=== PATIENT | male | born 1945 | race Caucasian/White ===

== ENCOUNTER 2017-12-06 09:57 | Emergency (ER) | payer OTHER ==
[~2017-12-06] VITALS: Ht 175.2 cm; Wt 118.8 kg
--- NOTE | ~2017-12-06 | EKG ---
[place], [place] ELECTROCARDIOGRAM REPORT NAME: JORGE ROACH UNIT #: [id number] ROOM: DOCTOR: EPIPHANY DRAFT REPORT BIRTHDATE: [birth year] [facility] Test Date: 2017-12-06 Test Time: 10:12:02 Pat Name: JORGE ROACH Department: Room: Gender: Patcher: Beba Mora : 1945 Requested By: MIKE MENDOZA Order Number: [id number] Reading MD: Shagufta Mohan MD Measurements Intervals [place] Rate: 67 P: 32 PA: 162 QRS: -25 QRSD: 97 T: -2 QT: 401 QTc: 424 Interpretive Statements Sinus rhythm Ventricular premature complex Borderline left axis deviation Low voltage, precordial leads Electronically Signed On 12-09-2017 12:32:25 PDT by Shagufta Mohan MD CM:EKGRPT:ELECTROCARDIOGRAM REPORT [id number] MIKE MENDOZA MD EPIPHANY DRAFT REPORT MIKE MENDOZA MD
[~2017-12-06 09:57] MED LIST: HYDROCODONE BIT1 T11 PO
[2017-12-06] MEDS ORDERED: MOBIC15 MG PO (10:12)
[2017-12-06] MEDS ORDERED: EFFEXOR-XR150 MG PO (10:12)
[2017-12-06] MEDS ORDERED: VITAMIN D32000 UNIT PO (10:13)
[2017-12-06] MEDS ORDERED: ASPIR LOW81 MG PO (10:13)
[2017-12-06] MEDS ORDERED: DONEPEZIL HCL10 MG PO (10:13)
[2017-12-06 10:16] LABS: BASO % 0.6 % (0.0-1.0); EOS # 0.2 10*3/uL (0.0-0.4); EOS % 3.3 % (1.0-4.0); HEMATOCRIT 43.4 % (42.0-52.0); HEMOGLOBIN 14.6 g/dl (14.0-18.0); LYMPH # 1.7 10*3/uL (1.3-4.4); LYMPH % 24.6 % (27.0-41.0); MEAN CELL VOLUME 90.6 fl (80.0-94.0); MEAN CORPUSCULAR HGB 30.5 pg (27.0-31.0); MEAN CORPUSCULAR HGB CONC 33.6 g/dl (33.0-37.0); MEAN PLATELET VOLUME 9.5 fl (9.6-12.3); MONO # 0.5 10*3/uL (0.1-1.0); MONO % 7.8 % (3.0-9.0); NEUT # 4.3 10*3/uL (2.3-7.9); NEUT % 63.4 % (47.0-73.0); PLATELET COUNT AUTOMATED 216 10*3/uL (130-400); RED BLOOD COUNT 4.79 10*6/uL (4.50-5.90); RED CELL DISTRI WIDTH 13.6 % (0-14.5); WHITE BLOOD COUNT 6.8 10*3/uL (4.8-10.8)
[2017-12-06 10:36] LABS: ALBUMIN 3.4 gm/dl (3.1-4.5); ALKALINE PHOSPHATASE 55 U/L (45-117); BUN 13 mg/dl (7-24); CHLORIDE 106 mmol/L (98-107); CREATININE 0.78 mg/dL (0.70-1.30); POTASSIUM 4.5 mmol/L (3.5-5.1); SGOT/AST 26 IU/L (3-35); SGPT/ALT 40 U/L (12-78); SODIUM 139 mmol/L (136-145); TOTAL PROTEIN 6.9 gm/dL (6.4-8.2)
[2017-12-06 10:37] LABS: TROPONIN I < 0.015 ng/ml (<0.045)
[2017-12-06 10:39] LABS: ACT PARTIAL THROMBO TIME 25.6 SECONDS (20.8-31.5)
== END 2017-12-06 11:29 | disposition home or self-care (01) ==
LOC: ED 09:57
PROVIDERS: Emergency Medicine
DX: R42 Dizziness and giddiness (principal); R53.83 Other fatigue; Z79.899 Other long term (current) drug therapy

== ENCOUNTER 2019-08-23 11:06 | Emergency (ER) | payer OTHER ==
[~2019-08-23] VITALS: Ht 175.2 cm; Wt 127.0 kg
[~2019-08-23 11:06] MED LIST changes: +ASPIR LOW81 MG PO; +DONEPEZIL HCL10 MG PO; +EFFEXOR-XR150 MG PO; +MOBIC15 MG PO; +VITAMIN D32000 UNIT PO
[2019-08-23] MEDS ORDERED: NYSTATIN CREAM15 GM T (12:13)
== END 2019-08-23 12:20 | disposition home or self-care (01) ==
LOC: ED 11:06
DX: B37.9 Candidiasis, unspecified (principal); F41.9 Anxiety disorder, unspecified; F32.9 Major depressive disorder, single episode, unspecified; Z79.899 Other long term (current) drug therapy

== ENCOUNTER 2021-05-28 06:07 | Emergency (ER) | payer OTHER ==
[~2021-05-28] VITALS: Ht 175.2 cm; Wt 120.2 kg
[~2021-05-28 06:07] MED LIST changes: +NYSTATIN CREAM15 GM T
== END 2021-05-28 22:49 | disposition short-term general hospital (02) ==
LOC: ED 06:07
DX: S83.521A Sprain of posterior cruciate ligament of right knee, initial encounter (principal); Z20.822 Contact with and (suspected) exposure to COVID-19; Z79.899 Other long term (current) drug therapy; Z90.49 Acquired absence of other specified parts of digestive tract; W17.89XA Other fall from one level to another, initial encounter; Y93.89 Activity, other specified; Y92.89 Other specified places as the place of occurrence of the external cause; Y99.8 Other external cause status